=== PATIENT | male | born 1955 | race Caucasian/White ===

== ENCOUNTER 2022-12-07 07:12 | Outpatient (RCR) | payer OTHER, SELFPAY ==
--- NOTE | 2022-11-23 01:00 | CR1_ITS ---
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
--- NOTE | 2022-12-21 14:08 | CR1_ITS ---
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
== END 2022-12-21 14:14 | disposition home or self-care (01) ==
LOC: CR 07:12
DX: J43.2 Centrilobular emphysema (principal)
CPT/HCPCS: 94625

== ENCOUNTER 2023-01-24 15:27 | Outpatient (OUT) | payer OTHER, SELFPAY ==
--- NOTE | 2023-01-24 15:30 | CT_ITS ---
[address] [address] Patient Name: KENZIE CLARK MRN: [id number] date: 1955 Sex: M Assigned Patient Location: CT Current Patient Location: Accession/Order Number: [id number] Exam Date: 01/24/2023 15:35 Report Date: 01/25/2023 04:47 At the request of: LEONOR FERGUSON Procedure: CT lung screening low-dose EXAMINATION: CT lung screening low-dose HISTORY: Z87.891 History of tobacco dependance COMPARISON: CT chest 01/14/2022, 01/01/2021 TECHNIQUE: Axial, Coronal, and Sagittal images were created without the administration of IV contrast material. Dose reduction techniques were achieved by using automated exposure control and/or adjustment of mA and/or kV according to patient size and/or use of iterative reconstruction technique. FINDINGS: LUNGS: Mild emphysematous changes. Stable, chronic 3 mm nodule within superior aspect right major fissure and 6 mm nodule within lingula. Chronic granuloma within right lower lobe superior segment. No acute infiltrates. PLEURA: No mass, effusion, or pneumothorax. VASCULATURE: No abnormality. SERGIO: No mass or pathologic adenopathy. MEDIASTINUM: No mass or pathologic adenopathy. CARDIAC: No enlargement, pericardial thickening, or significant calcification. AORTA: No aneurysm or dissection. CHEST WALL: No mass or axillary adenopathy BONES: No bone lesion or fracture. LIMITED ABDOMEN: No suspicious findings. Limited images of the upper abdomen. OTHER: Negative. CT/CT lung screening low-dose IMPRESSION: 1. Lung-RADS 2- Benign Appearance or Behavior. Nodules with a very low likelihood of becoming a clinically active cancer due to size or lack of growth. Follow-up CT Chest in 1 year. Electronically authenticated by: JOSE ESTES Date: 01/25/2023 04:47
== END 2023-01-24 15:28 | disposition home or self-care (01) ==
PROVIDERS: Visit Provider Internal Medicine
DX: Z87.891 Personal history of nicotine dependence (principal)
CPT/HCPCS: 71271

== ENCOUNTER 2024-01-29 08:07 | Outpatient (OUT) | payer OTHER, SELFPAY ==
--- NOTE | 2024-01-29 08:17 | CT_ITS ---
[address] [address] Patient Name: KENZIE CLARK MRN: [id number] date: 1955 Sex: M Assigned Patient Location: CT Current Patient Location: Accession/Order Number: [id number] Exam Date: 01/29/2024 08:31 Report Date: 01/30/2024 08:57 At the request of: LEONOR FERGUSON Procedure: CT lung screening low-dose EXAMINATION: CT lung screening low-dose HISTORY: History Of Tobacco Dependence Z87.891 COMPARISON: 01/24/2023 TECHNIQUE: Axial, Coronal, and Sagittal images were created without the administration of IV contrast material. Dose reduction techniques were achieved by using automated exposure control and/or adjustment of mA and/or kV according to patient size and/or use of iterative reconstruction technique. FINDINGS: LUNGS: Mild centrilobular emphysema with an upper lobe predominance. Scattered subcentimeter calcified and noncalcified pulmonary nodules. The largest noncalcified pulmonary nodules identified in the left lower lobe, axial image 117 measuring 6.3 x 5.0 mm, stable. No new significant pulmonary nodule or mass PLEURA: No mass, effusion, or pneumothorax. VASCULATURE: No abnormality. SERGIO: No mass or pathologic adenopathy. MEDIASTINUM: No mass or pathologic adenopathy. CARDIAC: No enlargement or pericardial effusion CORONARY ARTERIES: Coronary calcifications are heavy. AORTA: No aortic aneurysm. Moderate calcific atherosclerosis CHEST WALL: No mass or axillary adenopathy BONES: No bone lesion or fracture. LIMITED ABDOMEN: No suspicious findings. Limited images of the upper abdomen. OTHER: Negative. CT/CT lung screening low-dose IMPRESSION: LUNG SCREENING: Lung-RADS Category 2- Benign Appearance or Behavior. Nodules with a very low likelihood of becoming a clinically active cancer due to size or lack of growth. 2. Continue annual screening with LDCT in 12 months. Electronically authenticated by: TOMMIE REYES Date: 01/30/2024 08:57
== END 2024-01-29 08:08 | disposition home or self-care (01) ==
PROVIDERS: Visit Provider Internal Medicine
DX: Z87.891 Personal history of nicotine dependence (principal); Z12.2 Encounter for screening for malignant neoplasm of respiratory organs
CPT/HCPCS: 71271